=== PATIENT | male | born 1985 | race Caucasian/White ===

== ENCOUNTER 2017-10-15 10:19 | Emergency (ER) | payer OTHER ==
[~2017-10-15] VITALS: Ht 180.3 cm; Wt 117.5 kg
--- NOTE | 2017-10-15 10:48 | PHYS DOC ---
Past History Past Medical History: Anxiety, Depression, Other (ADHD) Smoking: Non-smoker Alcohol Use: None Adult General Chief Complaint Chief Complaint: ABDOMINAL PAIN [facility] HPI 32-year-old male patient complaining of intermittent episodes of epigastric and right upper quadrant pain for the last one week that getting for since last night after he ate pizza. Patient complaining of sharp and pressure pain in right upper quadrant with radiation to his back and associated with nausea without vomiting and diarrhea and urinary symptom without fever and chills. Patient rated his pain 10 over 10 and states the pain lasts from 11 PM to 6 AM. Patient complaining of mild aching pain at this time and thinks he had problem with his gallbladder. Review of Systems Review of Systems Constitutional: Denies fever or chills [] Eyes: Denies change in visual acuity, redness, or eye pain [] HENT: Denies nasal congestion or sore throat [] Respiratory: Denies cough or shortness of breath [] Cardiovascular: No additional information not addressed in HPI [] GI: Reports abdominal pain, nausea, denies vomiting, bloody stools or diarrhea [ ] : Denies dysuria or hematuria [] Musculoskeletal: Denies back pain or joint pain [] Integument: Denies rash or skin lesions [] Neurologic: Denies headache, focal weakness or sensory changes [] Endocrine: Denies polyuria or polydipsia [] All other systems were reviewed and found to be within normal limits, except as documented in this note. Allergies Allergies Allergies Coded Allergies Type Severity Reaction Last Updated Verified No Known Drug Allergies 10/15/17 No Physical Exam Physical Exam Constitutional: Well developed, well nourished, mild distress, non-toxic appearance. HENT: Normocephalic, atraumatic, bilateral external ears normal, oropharynx moist, no oral exudates, nose normal. [] Eyes: PERRLA, EOMI, conjunctiva normal, no discharge. [] Neck: Normal range of motion, no tenderness, supple, no stridor. [] Cardiovascular:Heart rate regular rhythm, no murmur [] Lungs & Thorax: Bilateral breath sounds clear to auscultation [] Abdomen: Bowel sounds normal, soft, right upper quadrant tenderness and positive Morphy sign, no masses, no pulsatile masses. [] Skin: Warm, dry, no erythema, no rash. [] Back: No tenderness, no CVA tenderness. [] Extremities: No tenderness, no cyanosis, no clubbing, ROM intact, no edema. [] Neurologic: Alert and oriented X 3, normal motor function, normal sensory function, no focal deficits noted. [] Psychologic: Affect normal, judgement normal, mood normal. [] EKG EKG [] Radiology/Procedures Radiology/Procedures [Gallbladder ultrasound showed cholelithiasis with mild cholecystitis] Course & Med Decision Making Course & Med Decision Making Pertinent Labs and Imaging studies reviewed. (See chart for details) Evaluation of patient in ER showed 32-year-old male patient with intermittent episodes of right upper quadrant pain that getting worse after eating and became severe last night after eating pizza. Patient had right upper quadrant tenderness and rebound tenderness this without fever and leukocytosis and elevation of liver function tests. Ultrasound of abdomen showed cholelithiasis with mild cholecystitis. Patient is living in [facility] and doesn't want to have surgery at this time. Plan to give the name of on-call surgeon and instruction to avoid of eating greasy food. [] Dragon Disclaimer Dragon Disclaimer This electronic medical record was generated, in whole or in part, using a voice recognition dictation system. Departure Departure: Impression: Primary Impression: Biliary colic Additional Impressions: Cholelithiasis affecting in first trimester, antepartum Hypokalemia Cholecystitis Disposition: 01 HOME, SELF-CARE Condition: IMPROVED Referrals: FARHEEN MATHEWS MD (PCP) Patient Instructions: Cholecystitis Additional Instructions: [facility]up with [facility] , call at [phone] in one or 2 days to make an appointment Avoid of eating greasy food Scripts Ranitidine Hcl (ZANTAC) 150 Mg Tablet 1 TAB PO BID, #20 TAB 3 Refills Prov: PRUDENCE LIN MD 10/15/17 Naproxen (NAPROSYN) 500 Mg Tablet 1 TAB PO BID, #20 TAB 1 Refill Prov: PRUDENCE LIN MD 10/15/17 Cephalexin (KEFLEX) 500 Mg Capsule 1 CAP PO TID, #21 CAP Prov: PRUDENCE LIN MD 10/15/17 Problem Qualifiers PRUDENCE LIN MD Oct 15, 2017 10:48
[2017-10-15 11:10] LABS: BASO # 0.1 x10^3/uL (0.0-0.2); BASO % 1 % (0-3); EOS # 0.2 x10^3/uL (0.0-0.7); EOS % 2 % (0-3); HEMATOCRIT 46.3 % (39.0-53.0); HEMOGLOBIN 16.2 g/dL (13.0-17.5); LYMPH # 2.7 x10^3/uL (1.0-4.8); LYMPH % 26 % (24-48); MEAN CORPUSCULAR HEMOGLOBIN 29 pg (25-35); MEAN CORPUSCULAR HGB CONC 35 g/dL (31-37); MEAN CORPUSCULAR VOLUME 83 fL (79-100); MONO % 10 % (0-9); NEUT # 6.4 x10^3uL (1.8-7.7); NEUT % 62 % (31-73); PLATELET COUNT 229 x10^3/uL (140-400); RED BLOOD COUNT 5.57 x10^6/uL (4.30-5.70); RED CELL DISTRIBUTION WIDTH 13.3 % (11.5-14.5); WHITE BLOOD COUNT 10.3 x10^3/uL (4.0-11.0)
[2017-10-15 11:23] LABS: ALBUMIN 4.2 g/dL (3.4-5.0); ALBUMIN/GLOBULIN RATIO 1.3 (1.0-1.7); CALCIUM 9.5 mg/dL (8.5-10.1); CREATININE 1.3 mg/dL (0.7-1.3); GFR 64.4; POTASSIUM 3.3 mmol/L (3.5-5.1); TOTAL BILIRUBIN 0.5 mg/dL (0.2-1.0); TOTAL PROTEIN 7.5 g/dL (6.4-8.2)
[2017-10-15 11:45] LABS: BILIRUBIN,URINE NEG (NEG); CLARITY,URINE HAZY; COLOR,URINE AMBER; GLUCOSE,URINE NEG (NEG)
[2017-10-15 11:46] LABS: BACTERIA,URINE FEW /HPF (0-FEW); NITRITE,URINE NEG (NEG); RBC,URINE RARE /HPF (0-2); SQUAMOUS EPITHELIAL CELL,UR MOD /LPF; UROBILINOGEN,URINE 0.2 mg/dL (0.2 mg/dL); WBC,URINE RARE /HPF (0-4)
--- NOTE | 2017-10-15 11:51 | RAD ---
Indication: Right upper quadrant pain Technique: Grayscale, color Doppler and spectral waveform ultrasound images of the abdomen Comparison: None Findings: Visualized pancreas within normal limits. The IVC is patent. The liver measures 20 cm in craniocaudal dimension and is mildly enlarged. Main portal vein is patent with hepatopedal flow. Gallstones and sludge noted. The gallbladder wall measures 5 mm and is mildly thickened. No pericholecystic fluid. CBD measures 3.3 mm and is within normal limits. The right kidney measures 10.47 without evidence of hydronephrosis. Impression: 1. Cholelithiasis with mild gallbladder wall thickening without gallbladder distention. Findings are nonspecific but may represent acute cholecystitis in right clinical setting. 2. Mild hepatomegaly.
[2017-10-15] MEDS ORDERED: cefTRIAXone SODIUM 1 GM VIAL IV ONE (12:29)
[2017-10-15] MEDS ORDERED: IV NORMAL SALINE 50ML 50 ML ONE (12:29)
[2017-10-15] MEDS ORDERED: RANI150T6 PO (12:33)
[2017-10-15] MEDS ORDERED: NAPR-683 PO (12:33)
[2017-10-15] MEDS ORDERED: CEPH-264 PO (12:33)
[2017-10-15 12:40] VITALS: BP 158/96
== END 2017-10-15 12:42 | disposition home or self-care (01) ==
LOC: ER 10:19
DX: K80.64 Calculus of gallbladder and bile duct with chronic cholecystitis without obstruction (principal); E87.6 Hypokalemia; F41.9 Anxiety disorder, unspecified; F90.9 Attention-deficit hyperactivity disorder, unspecified type
CPT/HCPCS: 36415; 76705; 80053; 81001; 83690; 85025; 96374; 99285; J0696